=== PATIENT | female | born 1945 | race Caucasian/White ===

== ENCOUNTER → 2021-06-25 | Outpatient (CLI) | payer MEDICARE, OTHER | LOC: COL.RAD 09:31 | DX: R10.11 Right upper quadrant pain (principal); M89.8X1 Other specified disorders of bone, shoulder; R11.0 Nausea ==

== ENCOUNTER → 2021-07-19 | Outpatient (CLI) | payer MEDICARE, OTHER | LOC: COL.RAD 14:11 | DX: R10.9 Unspecified abdominal pain (principal) ==

== ENCOUNTER → 2021-09-16 | Outpatient (CLI) | payer MEDICARE, OTHER ==
[2021-09-16 10:39] LABS: HEMATOCRIT 37.8 % (37.0-47.0); HEMOGLOBIN 12.8 g/dl (12.5-16.0); MEAN CELL VOLUME 95 fl (80.0-100.0); MEAN CORPUSCULAR HEMOGLOBIN 32 pg (27-31); MEAN CORPUSCULAR HGB CONC 34 g/dl (33.0-37.0); MEAN PLATELET VOLUME 8.9 fl (7.4-10.4); PLATELET COUNT 246 K/mm3 (130-400); RED BLOOD COUNT 3.98 M/mm3 (4.10-5.30)
[2021-09-16 10:56] LABS: ALBUMIN 3.9 gm/dL (3.4-4.8); BILIRUBIN,TOTAL 2.1 mg/dL (0.2-1.2); CALCIUM 9.2 mg/dL (8.4-10.2); CREATININE, serum 0.74 mg/dL (0.57-1.11); POTASSIUM 3.7 mmol/L (3.5-4.5)
[2021-09-16 11:16] LABS: THYROID STIMULATING HORMONE 0.735 uIU/mL (0.350-4.940)
== END ==
LOC: COL.LAB 09:55
PROVIDERS: Internal Medicine Gastroenterology
DX: R10.84 Generalized abdominal pain (principal); R11.0 Nausea

== ENCOUNTER → 2021-09-23 | Outpatient (CLI) | payer MEDICARE, OTHER | LOC: COL.RAD 09:27 | DX: M47.816 Spondylosis without myelopathy or radiculopathy, lumbar region (principal); M51.36 Other intervertebral disc degeneration, lumbar region; K57.30 Diverticulosis of large intestine without perforation or abscess without bleeding | CPT/HCPCS: Q9967 ==

== ENCOUNTER → 2021-10-08 | Outpatient (CLI) | payer MEDICARE, OTHER | LOC: COL.RAD 09:45 | DX: R10.9 Unspecified abdominal pain (principal); R11.10 Vomiting, unspecified | CPT/HCPCS: A9537 ==

== ENCOUNTER 2021-10-21 15:40 | Emergency (ER) | payer MEDICARE, OTHER ==
[~2021-10-21] VITALS: Ht 167.6 cm; Wt 71.8 kg
[2021-10-21 17:28] LABS: BASO % 0.7 % (0.0-2.0); EOS % 0.5 % (0.0-4.0); GRAN # 4.1 K/mm3 (1.4-6.5); GRAN % 72.8 % (42.2-75.2); HEMATOCRIT 39.8 % (37.0-47.0); HEMOGLOBIN 13.9 g/dl (12.5-16.0); LYMPH # 0.7 K/mm3 (1.2-3.4); LYMPH % 12.7 % (20.0-51.0); MEAN CELL VOLUME 93 fl (80.0-100.0); MEAN CORPUSCULAR HEMOGLOBIN 32 pg (27-31); MEAN CORPUSCULAR HGB CONC 35 g/dl (33.0-37.0); MEAN PLATELET VOLUME 8.8 fl (7.4-10.4); MONO # 0.7 K/mm3 (0.1-0.6); MONO % 12.9 % (1.7-9.3); PLATELET COUNT 294 K/mm3 (130-400); RED BLOOD COUNT 4.29 M/mm3 (4.10-5.30)
[2021-10-21 17:45] LABS: ALBUMIN 4.4 gm/dL (3.4-4.8); CREATININE, serum 0.83 mg/dL (0.57-1.11); MAGNESIUM 2.1 mg/dL (1.6-2.6); PHOSPHOROUS 3.3 mg/dL (2.3-4.7); POTASSIUM 3.2 mmol/L (3.5-4.5)
[2021-10-21 17:46] LABS: COLLECTION METHOD CLEAN CATCH
[2021-10-21 17:51] LABS: TROPONIN-I 0.015 ng/mL (0.00-0.033)
[2021-10-21 17:53] LABS: URINE APPEARANCE Clear (CLEAR/HAZY); URINE COLOR Yellow (YELLOW)
[2021-10-21 17:54] LABS: URINE BLOOD Negative (NEGATIVE); URINE GLUCOSE Negative (NEGATIVE); URINE KETONE TRACE (NEGATIVE); URINE NITRATE Negative (NEGATIVE); URINE PROTEIN(semi-quant) 2+ (NEGATIVE); URINE UROBILINOGEN 0.2 E.U/dL (0.2-1.0)
[2021-10-21 17:55] LABS: MUCOUS Present (NOT PRESENT); URINE BACTERIA None Seen /hpf (NONE SEEN); URINE RBC 0-2 /hpf (0-2)
[2021-10-21 19:42] VITALS: BP 160/88; PULSE 88; TEMP 97
[2021-11-03] MEDS ORDERED: HYZAAR 50-12.1 UDTAB PO (06:22)
[2021-11-03] MEDS ORDERED: LIPITOR20 MG PO (06:23)
[2021-11-03] MEDS ORDERED: NORVASC 5MG5 MG/TAB PO (06:23)
[2021-11-03] MEDS ORDERED: VITAMIN D31000 I1 PO (06:24)
[2021-11-03] MEDS ORDERED: REQUIP 1MG T1 MG/TAB PO (06:24)
[2021-11-03] MEDS ORDERED: CRANBERRY500 M3 PO (06:25)
[2021-11-03] MEDS ORDERED: CENTRUM SILVER1 TA2 PO (06:25)
[2021-11-03] MEDS ORDERED: ACIDOPHILIS (06:26)
[2021-11-03] MEDS ORDERED: MAGNESIUM250 M1 PO (06:26)
[2021-11-03] MEDS ORDERED: ZYRTEC 10MG10 MG PO (06:27)
[2021-11-03] MEDS ORDERED: COLACE 100100 MG/CAP PO (06:27)
[2021-11-03] MEDS ORDERED: NORCO 325 MG-51 TAB PO (08:57)
== END 2021-10-21 19:42 | disposition home or self-care (01) ==
LOC: COL.ER 15:40
PROVIDERS: Emergency Medicine
DX: R00.0 Tachycardia, unspecified (principal); T50.905A Adverse effect of unspecified drugs, medicaments and biological substances, initial encounter; F41.9 Anxiety disorder, unspecified; Z87.891 Personal history of nicotine dependence; Z98.61 Coronary angioplasty status
CPT/HCPCS: J1200; J7120

== ENCOUNTER 2022-03-02 14:36 | Outpatient (CLI) | payer MEDICARE, OTHER ==
[~2022-03-02] VITALS: Ht 167.6 cm; Wt 70.0 kg
[~2022-03-02 14:36] MED LIST: ACIDOPHILIS; CENTRUM SILVER1 TA2 PO; COLACE 100100 MG/CAP PO; CRANBERRY500 M3 PO; HYZAAR 50-12.1 UDTAB PO; LIPITOR20 MG PO; MAGNESIUM250 M1 PO; NORCO 325 MG-51 TAB PO; NORVASC 5MG5 MG/TAB PO; REQUIP 1MG T1 MG/TAB PO; VITAMIN D31000 I1 PO; ZYRTEC 10MG10 MG PO
[2022-03-02 15:00] VITALS: BP 122/73; PULSE 77; TEMP 97.8
[2022-03-02] MEDS ORDERED: CARAFATE 1GM1 G PO (15:30)
[2022-03-02] MEDS ORDERED: PROTONIX 40MG T40 MG PO (15:30)
[2022-03-02] MEDS ORDERED: PEPCID 20MG TAB20 MG PO (15:31)
== END 2022-03-02 18:00 ==
LOC: EUO 14:36
DX: M81.0 Age-related osteoporosis without current pathological fracture (principal)
CPT/HCPCS: J3489

== ENCOUNTER → 2023-03-08 | Outpatient (CLI) | payer MEDICARE ==
[~2023-03-08] MED LIST changes: +CARAFATE 1GM1 G PO; +PEPCID 20MG TAB20 MG PO; +PROTONIX 40MG T40 MG PO
== END ==
LOC: MC.RAD 13:21
DX: Z12.31 Encounter for screening mammogram for malignant neoplasm of breast (principal)